=== PATIENT | female | born 1995 ===

== ENCOUNTER 2017-09-09 01:41 | Emergency (ER) | payer SELFPAY ==
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
[2017-09-09 03:33] VITALS: BP 138/95; PULSE 81; RESP 17; TEMP 98.1; O2SAT 99
--- NOTE | 2017-09-09 09:45 | RAD ---
PROCEDURE: Radiographs of the Right Shoulder HISTORY: injury COMPARISON: No prior. FINDINGS: BONES: No fracture. Small C7 cervical rib developmental variant JOINTS: Glenohumeral and acromioclavicular trace early osteoarthrosis suspect SOFT TISSUES: Normal. OTHER FINDINGS: None. IMPRESSION: No acute findings
== END 2017-09-09 03:20 | disposition home or self-care (01) ==
LOC: H.ER 01:41
DX: S49.91XA Unspecified injury of right shoulder and upper arm, initial encounter (principal); Y04.0XXA Assault by unarmed brawl or fight, initial encounter; Y92.89 Other specified places as the place of occurrence of the external cause

== ENCOUNTER 2018-01-31 04:04 | Emergency (ER) | payer SELFPAY ==
[2018-01-31 04:39] VITALS: RESP 18
[2018-01-31 05:32] LABS: BASO % 0.5 % (0.0-2.0); EOS # 0.2 K/uL (0.0-0.7); EOS % 1.8 % (0.0-4.0); HEMOGLOBIN 12.6 g/dL (12.0-16.0); LYMPH # 2.3 K/uL (1.0-4.3); LYMPH % 25.2 % (20.0-40.0); MEAN CORPUSCULAR HEMOGLOBIN 27.4 pg (27.0-31.0); MEAN CORPUSCULAR HGB CONC 33.5 g/dL (33.0-37.0); MEAN PLATELET VOLUME 9.5 fl (7.2-11.7); MONO # 0.7 K/uL (0.0-0.8); MONO % 7.5 % (0.0-10.0); NEUT # 5.9 K/uL (1.8-7.0); NRBC % 0.1 % (0.0-0.0); RBC 4.58 Mil/uL (3.80-5.20); RED CELL DISTRIBUTION WIDTH 14.5 % (11.5-14.5); WHITE BLOOD COUNT 9.1 K/uL (4.8-10.8)
--- NOTE | 2018-01-31 05:43 | ED PDOC ---
Lower Extremity Pain/Injury Time Seen by Provider: 01/31/18 04:05 Chief Complaint (Nursing): Lower Extremity Problem/Injury Chief Complaint (Provider): Lower Extremity Problem/Injury History Per: Patient History/Exam Limitations: no limitations Onset/Duration Of Symptoms: Days (x3 weeks) Additional Complaint(s): Patient is a 22 y/o female with history of HTN who presents to the ED complaining of bilateral atraumatic leg pain with associated swelling, onset x3 weeks ago. Patient reports left calf swelling as well onset x2 days ago. Patient states that if she elevates her legs then the swelling decreases but admits that she doesn't elevate every day. She denies any recent travel and denies family history of blood clot. She also denies shortness of breath, chest pain, fever, or vomiting. Past Medical History Reviewed: Historical Data, Nursing Documentation, Vital Signs Vital Signs: Last Vital Signs Temp 97.9 F 01/31/18 04:31 Pulse 82 01/31/18 04:31 Resp 18 01/31/18 04:31 BP 154/98 H 01/31/18 04:31 Pulse Ox 99 01/31/18 04:31 - Medical History PMH: Anxiety, Asthma, HTN - Surgical History Surgical History: No Surg Hx - Family History Family History: States: No Known Family Hx - Social History Current smoker - smoking cessation education provided: No Alcohol: None Drugs: Denies - Home Medications Home Medications: Ambulatory Orders Medication Instructions Recorded Cyclobenzaprine [Cyclobenzaprine 10 mg PO TID PRN #15 tab 12/28/15 HCl] Ibuprofen [Motrin Tab] 1 tab PO Q6 PRN #20 tab 09/09/17 - Allergies Allergies/Adverse Reactions: Allergies Allergy/AdvReac Type Severity Reaction Status Date / Time No Known Allergies Allergy Verified 12/27/15 23:59 Review of Systems ROS Statement: Except As Marked, All Systems Reviewed And Found Negative Constitutional: Negative for: Fever Cardiovascular: Negative for: Chest Pain Respiratory: Negative for: Shortness of Breath Gastrointestinal: Negative for: Vomiting Musculoskeletal: Positive for: Leg Pain (bilaterally) Physical Exam - Reviewed Nursing Documentation Reviewed: Yes - Physical Exam Appears: Positive for: Well, Non-toxic, No Acute Distress Head Exam: Positive for: ATRAUMATIC, NORMOCEPHALIC Skin: Positive for: Normal Color, Warm, Dry Eye Exam: Positive for: EOMI, Normal appearance, PERRL ENT: Positive for: Normal ENT Inspection Neck: Positive for: Normal, Painless ROM, Supple Cardiovascular/Chest: Positive for: Regular Rate, Rhythm. Negative for: Murmur Respiratory: Positive for: Normal Breath Sounds. Negative for: Respiratory Distress Gastrointestinal/Abdominal: Positive for: Normal Exam, Soft. Negative for: Tenderness Back: Positive for: Normal Inspection. Negative for: L CVA Tenderness, R CVA Tenderness Extremity: Positive for: Normal ROM, Swelling (bilateral calf swelling), Other ( neurovascular intact, FROM of both legs). 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 Negative for: Motor/Sensory Deficits - Laboratory Results Result Diagrams: 01/31/18 05:06 01/31/18 05:06 - ECG O2 Sat by Pulse Oximetry: 99 (RA) Pulse Ox Interpretation: Normal Medical Decision Making Medical Decision Making: Time: 05:01 Impression: Bilateral lower leg pain and swelling, r/o clot Initial Plan: --CMP --Toradol --US - Duplex lower extremity Time: 07:00 Patient care endorsed to Dr. Kurtz pending US duplex. ----- Scribe Attestation: Documented by Jaxson Shcwartz, acting as a scribe for Roldan Lynch MD Provider Scribe Attestation: All medical record entries made by the Scribe were at my direction and personally dictated by me. I have reviewed the chart and agree that the record accurately reflects my personal performance of the history, physical exam, medical decision making, and the department course for this patient. I have also personally directed, reviewed, and agree with the discharge instructions and disposition. Disposition - Clinical Impression Clinical Impression: Leg swelling, Hypokalemia - Patient ED Disposition Is Patient to be Admitted: Transfer of Care - Disposition Referrals: [facility] [Outside] - 08/06/18 Disposition: Transfer of Care Disposition Time: 07:00 Condition: STABLE Additional Instructions: Return if not better in 3 days. Instructions: Hypokalemia, Dependent Edema (DC) Forms: [facility] ED School/Work Excuse Patient Signed Over To: Baudilio Kurtz (, labs)
[2018-01-31 05:51] LABS: ALB/GLOB RATIO 1.3 (1.0-2.1); ALBUMIN 3.9 g/dL (3.5-5.0); ALT/SGPT 34 U/L (9-52); AST/SGOT 56 U/L (14-36); BLOOD UREA NITROGEN 20 mg/dl (7-17); CALCIUM 8.7 mg/dL (8.4-10.2); GFR AFRICAN-AMERICAN > 60; GFR NON-AFRICAN AMERICAN > 60
[2018-01-31] MEDS ORDERED: Potassium Chloride 20 mEq ER Tab PO ONE ×2 (05:58→09:07)
--- NOTE | 2018-01-31 07:39 | ED PDOC ---
- Laboratory Results Result Diagrams: 01/31/18 05:06 01/31/18 05:06 Interpretation Of Abn Labs: 3.4 - ECG O2 Sat by Pulse Oximetry: 99 (RA) Pulse Ox Interpretation: Normal - Progress ED Course And Treament: 920: Stable. AAOx3. Pain free. Tolerated PO. Fu with pcp. Medical Decision Making Medical Decision Makin22 year old female with leg swelling signed out to provider at 0700 pending US duplex. 0715 Labs (-) Potassium 3.4 Documented by Yari Schilling acting as a scribe for Baudilio Kurtz MD. All medical record entries made by the Scribe were at my direction and personally dictated by me. I have reviewed the chart and agree that the record accurately reflects my personal performance of the history, physical exam, medical decision making, and the department course for this patient. I have also personally directed, reviewed, and agree with the discharge instructions and disposition. Disposition - Clinical Impression Clinical Impression: Leg swelling, Hypokalemia - POA Present On Arrival: None - Disposition Referrals: [facility] [Outside] - 02/01/18 Disposition: Routine/Home Disposition Time: 09:22 Condition: STABLE Additional Instructions: Return if not better in 3 days. Instructions: Hypokalemia, Dependent Edema (DC)
[2018-01-31 09:57] VITALS: BP 128/80; PULSE 79; TEMP 98
[2018-02-01 04:25] VITALS: O2SAT 99
--- NOTE | 2018-02-01 11:30 | US ---
Date of service: 01/31/2018 PROCEDURE: Bilateral lower extremity venous duplex Doppler. HISTORY: lef calf pain COMPARISON: None available. TECHNIQUE: Bilateral common femoral, superficial femoral, popliteal and posterior tibial veins were evaluated. Flow was assessed with color Doppler, compressibility, assessment of phasic flow and augmentation response. FINDINGS: COMMON FEMORAL VEIN: Right CFV: Unremarkable. Left CFV: Unremarkable. SUPERFICIAL FEMORAL VEIN: Right SFV: Unremarkable. Left SFV: Unremarkable. POPLITEAL VEIN: Right Popliteal: Unremarkable. Left Popliteal: Unremarkable. POSTERIOR TIBIAL VEIN: Right PTV: Unremarkable. Left PTV: Unremarkable. OTHER FINDINGS: None. IMPRESSION: No evidence of deep venous thrombosis.
== END 2018-01-31 09:45 | disposition home or self-care (01) ==
LOC: H.ER 04:04
DX: R60.0 Localized edema (principal); E87.6 Hypokalemia; F41.9 Anxiety disorder, unspecified; I10 Essential (primary) hypertension
CPT/HCPCS: 80053; 81025; 85025; 93970; 99284; J1885